=== PATIENT | female | born 1995 | race Caucasian/White ===

== ENCOUNTER 2018-03-05 16:36 | Emergency (ER) | payer OTHER ==
[~2018-03-05] VITALS: Ht 170.2 cm; Wt 75.4 kg
[~2018-03-05 16:36] MED LIST: BCPILLS PO; BUPR8SUB19 PO
[2018-03-05 16:50] VITALS: TEMP 36.8; Ht 170.2 cm; Wt 75.4 kg
--- NOTE | 2018-03-05 17:59 | EMERGENCY ROOM VISIT NOTE ---
ED Visit Note First contact with patient: 17:02 CHIEF COMPLAINT: Bilateral hand swelling HISTORY OF PRESENTING ILLNESS: This is a 22-year-old female who presents the emergency department with complaint of bilateral hand swelling. She states this has been going on for over a year. She states that she has seen her family doctor and has also been seen by [employer] about a year ago without a diagnosis. She states that she was in the area and her grandmother told her she should go get checked. She denies any pain in the hands. She states that the swelling get worse at night and is worst first thing in the morning, gets a little bit better throughout the day. She states that the skin is usually red and sometimes a purplish color. The swelling does not extend past the wrists, does not involve the arms at all. She also does not have any swelling or discoloration in her legs or feet. She denies any associated chest pain, shortness of breath, palpitations, dizziness or syncope, abdominal pain, back pain, nausea or vomiting, changes in bowel habits, urinary symptoms, unusual rash. She denies any fevers or chills. She is on buprenorphine for history of narcotic abuse in the past, states she has been on this medication for over 4 years. She denies any medication changes, injuries to the hands, or any other inciting incident that she can think of before the swelling started. REVIEW OF SYSTEMS: A complete 10 point review of systems was reviewed with the patient with pertinent positives and negatives as per history of present illness. All else were negative. PAST MEDICAL HISTORY: Reviewed in chart, see problem list below SOCIAL HISTORY: Lives at home. She is a current everyday smoker. She reports a history of narcotic abuse, currently denies any recreational drug use. ALLERGIES: No known allergies. PHYSICAL EXAM: CONSTITUTIONAL: Pleasant and cooperative. No acute distress. Well appearing and well nourished. HEENT: Normocephalic, atraumatic. Pupils equal, round and reactive to light, EOMI. TMs normal. Pharynx normal. NECK: Supple, full active range of motion without discomfort. RESPIRATORY: Clear to auscultation bilaterally with no wheezing, crackles, rhonchi or stridor. Equal expansion bilaterally. CARDIOVASCULAR: Regular rate and rhythm with no murmurs, rubs or gallops. Normal peripheral perfusion. No lower extremity edema. GASTROINTESTINAL: Soft, nontender, nondistended. No palpable masses or HSM. Bowel sounds present in all quadrants. MUSCULOSKELETAL: Diffuse swelling and non-pitting edema of the bilateral hands. Erythema and discoloration of the hands and fingers. The hands are nontender to palpation. There are not hot to touch. Range of motion in the fingers is limited due to the swelling. There is no swelling or discoloration of the forearms or upper arms bilaterally. There are multiple scars noted on the bilateral arms consistent with track cheng. There is no swelling or discoloration of the lower extremities. Full range of motion of all other joints without discomfort. INTEGUMENTARY: No rash or other significant dermatologic conditions noted. NEUROLOGIC: Alert and oriented X 4 with normal affect. Normal strength and sensation in all 4 extremities. No focal neurologic deficits noted. Normal speech. Normal gait observed. ED COURSE AND MEDICAL DECISION MAKING: CC: Patient presenting with complaint of bilateral hand swelling DIFFERENTIAL DIAGNOSIS: Includes, but not limited to edema, thrombus, electrolyte abnormality, rheumatologic disease, IV drug abuse, among others. IMAGING: X-rays of the right and left hand were performed, reviewed by myself and read by radiology as below: IMPRESSION: 1. No acute osseous injury. 2. No radiographic evidence of osteomyelitis. 3. Nonspecific diffuse soft tissue swelling. 4. No patchy osteopenia to suggest complex regional pain syndrome though this does not exclude the diagnosis. MEDICATION RECONCILIATION: I attest that I have personally reviewed the patient 's current medication list. INITIAL VITAL SIGNS REVIEW: I reviewed the patient's initial vital signs and interpret them as follows: T: Afebrile; BP: Normotensive; HR: Within normal limits; RR: Within normal limits; Pulse Ox: Within normal limits on room air. Blood pressure screening: The patient was found to have normal blood pressure on screening and does not require follow-up for repeat blood pressure check. SUMMARY: Patient was evaluated at bedside, history and physical exam performed. Patient is alert and oriented, no acute distress, resting calmly in stretcher. Patient is noted to have significant swelling and non-pitting edema of both hands, with erythematous discoloration of the hands and fingers. Nontender to palpation. There is no swelling or discoloration noted to the rest of the arms, legs or feet. Orders were placed at bedside for labs and x-rays of both hands to evaluate for underlying bony abnormalities. Patient discussed with Dr. Mary, who agrees with my assessment and plan. Multiple attempts were made to draw labs, from nursing, lab team, and IV team, even with use of the vein finder, without success. Patient is declining any additional attempts for lab draw. Given the chronic nature of the patient's problem, I do not feel lab workup is urgent at this time. X-rays of the hands reviewed and are unremarkable. Given the patient's history of drug abuse, track cheng noted on her arms, and very difficult lab draw, I do believe her swelling may be related to that history. Patient does adamantly deny a history of IV drug use or abuse, but is on buprenorphine for her history of narcotic abuse. I spoke with case management, who will assist the patient in setting up referral to [place] [facility] for further evaluation of her hand swelling. Patient reassessed multiple times throughout ED stay, she remained stable without any complaints. Patient was updated on all results and plan for discharge, she is encouraged to follow-up with her PCP and the [employer] teacher. Patient was also given strict return precautions should her symptoms worsen, she verbalized understanding. Patient was discharged home in stable condition and ambulatory. Problem List Medical Problems: (1) Urinary problem Status: Resolved Current/Historical Medications No Active Prescriptions or Reported Meds Allergies Coded Allergies: No Known Allergies (Unverified , 05/03/14) Vital Signs Date Time Temp Pulse Resp B/P (MAP) Pulse Ox O2 Delivery O2 Flow Rate FiO2 03/05/18 19:10 72 18 123/78 98 Room Air 03/05/18 16:50 36.8 89 18 119/73 98 Room Air Laboratory Results Test 03/05/18 17:50 Urine Color YELLOW Urine Appearance CLEAR (CLEAR) Urine pH 8.5 (4.5-7.5) Urine Specific [place] 1.025 (1.000-1.030) Urine Protein NEG (NEG) Urine Glucose (UA) NEG (NEG) Urine Ketones NEG (NEG) Urine Occult Blood NEG (NEG) Urine Nitrite NEG (NEG) Urine Bilirubin NEG (NEG) Urine Urobilinogen NEG (NEG) Urine Leukocyte Esterase TRACE (NEG) Urine WBC (Auto) 1-5 /hpf (0-5) Urine RBC (Auto) 0-4 /hpf (0-4) Urine Hyaline Casts (Auto) 1-5 /lpf (0-5) Urine Epithelial Cells (Auto) >30 /lpf (0-5) Urine Bacteria (Auto) 1+ (NEG) Urine Test NEG (NEG) Departure Information Impression Primary Impression: Bilateral hand swelling Dispostion Home / Self-Care Condition GOOD Prescriptions No Active Prescriptions or Reported Meds Referrals Curtis Balderas M.D. (PCP) Patient Instructions My [facility] Additional Instructions You have been evaluated in the emergency department for swelling in your hands. Your x-rays do not show any acute problems. Case management has met with you and will help coordinate scheduling an appointment with [facility] to follow up. Please keep your appointment. Please return to the emergency department for worsening symptoms, including severe pain, increased redness or swelling with streaking up the arms, fever/ chills, or any other concerns.
--- NOTE | 2018-03-05 18:11 | DIAGNOSTIC IMAGING REPORT ---
L HAND MIN 3 VIEWS ROUTINE CLINICAL HISTORY: 22 years-old Female presenting with eval bilateral hand swelling. TECHNIQUE: Frontal, oblique, and lateral views of the left hand were obtained. COMPARISON: None. FINDINGS: No acute fracture or malalignment. No advanced degenerative change. Diffuse soft tissue swelling greatest along the dorsum of the hand but also extending into the fingers. No soft tissue emphysema. No patchy osteopenia is appreciated. No osseous erosion or periosteal reaction. IMPRESSION: 1. No acute osseous injury. 2. No radiographic evidence of osteomyelitis. 3. Nonspecific diffuse soft tissue swelling. 4. No patchy osteopenia to suggest complex regional pain syndrome though this does not exclude the diagnosis. Electronically signed by: Lexx Harden M.D. 03/05/2018 6:10 PM Dictated Date/Time: 03/05/2018 6:07 PM
--- NOTE | 2018-03-05 18:12 | DIAGNOSTIC IMAGING REPORT ---
R HAND MIN 3 VIEWS ROUTINE CLINICAL HISTORY: 22 years-old Female presenting with eval hand swelling. TECHNIQUE: Frontal, oblique, and lateral views of the right hand were obtained. COMPARISON: None. FINDINGS: Evidence of an old ulnar solid fracture. No acute fracture or malalignment. No advanced degenerative change. Mild soft tissue swelling diffusely primarily over the dorsum of the hand but extending to the fingers. No soft tissue emphysema. No patchy osteopenia. No osseous erosion or periosteal reaction. IMPRESSION: 1. No acute osseous injury. 2. No radiographic evidence of osteomyelitis. 3. Nonspecific soft tissue swelling 4. No patchy osteopenia to suggest complex regional pain syndrome though this does not exclude the diagnosis. Electronically signed by: Lexx Harden M.D. 03/05/2018 6:11 PM Dictated Date/Time: 03/05/2018 6:10 PM
[2018-03-05 19:10] VITALS: BP 123/78; PULSE 72; O2SAT 98
== END 2018-03-05 19:43 | disposition home or self-care (01) ==
LOC: C.EDB 16:37
DX: M79.89 Other specified soft tissue disorders (principal); F17.200 Nicotine dependence, unspecified, uncomplicated; Z79.899 Other long term (current) drug therapy; Z87.898 Personal history of other specified conditions